=== PATIENT | female | born 1955 | race Caucasian/White ===

== ENCOUNTER 2025-05-28 18:01 | Emergency (ER) | payer OTHER ==
[~2025-05-28] VITALS: Ht 162.6 cm; Wt 78.0 kg
[~2025-05-28 18:01] MED LIST: AMIO200T33 PO; BACL-63 PO; CLON-853 PO; DIGO0.2570 PO; DILT180C88 PO; FURO1TAB33 GT; METO25TA5 PO; NEBI5TAB10 PO; RIVA20TA PO; TRAZ-228 PO
--- NOTE | 2025-05-28 18:16 | ECG ---
[facility] Test Date: 2025-05-28 Test Time: 18:15:38 Pat Name: ANTONINA REARDON Department: [facility] ED Patient ID: [id number] Room: Gender: F Magazine Supervisor: DOMINGA : 1955 Requested By: DAVON ABDULLAHI Order Number: [id number] Reading MD: Yao Estrella Measurements Intervals [place] Rate: 130 P: 86 PA: 116 QRS: 76 QRSD: 81 T: 219 QT: 285 QTc: 419 Interpretive Statements Sinus tachycardia Multiform ventricular premature complexes Low voltage, precordial leads Repol abnrm suggests ischemia, diffuse leads Electronically Signed On 06-04-2025 13:44:03 PDT by Yao Estrella Please click the below link to view image of tracing.
--- NOTE | 2025-05-28 19:30 | DVH ---
CHEST RADIOGRAPH Indication: chest pain Technique: Single frontal view of the chest was obtained Comparison: None FINDINGS: Lines and Tubes: Sternal wire sutures in place Dual-chamber pacemaker in place with pulse generator o jens the left chest. Lungs: Prominent bronchovascular markings both lung bueno. No prior studies for comparison Pleura: No effusion. No pneumothorax. Cardiomediastinal contours: Cardiac size upper limits of normal Bones: No acute osseous abnormality. IMPRESSION: 1. Findings may represent congestive failure. No prior studies for comparison. 2. Correlate with the clinical setting.
[2025-05-28 19:34] LABS: Hematocrit 37.0 % (36.0-46.0); Hemoglobin 12.4 g/dL (12.2-16.2); Mean Corpuscular Hemoglobin 28.3 pg (28.0-32.0); Mean Corpuscular Volume 84.2 fL (80.0-100.0); Nucleated Red Blood Cells % 0.1 %
[2025-05-28 19:39] LABS: Anion Gap 14 (5-15); Calcium 9.7 mg/dL (8.7-10.4); Carbon Dioxide 26 mmol/L (20-31)
[2025-05-28 19:40] LABS: Chloride 95 mmol/L (98-107); INR 1.19 (0.9-1.15); Potassium 3.5 mmol/L (3.5-5.1); Prothrombin Time 12.4 sec (9.3-11.8); Sodium 135 mmol/L (136-145)
[2025-05-28 19:44] LABS: BUN/Creatinine Ratio 11.3 (10.0-20.0)
[2025-05-28 19:51] LABS: Blood Urea Nitrogen 6 mg/dL (9-23); Glucose 111 mg/dL (74-106)
[2025-05-28] MEDS ORDERED: MORPHINE SULFATE 10 MG/5 ML ORAL SOLN PO ONE (20:30)
[2025-05-28] MEDS: SODIUM CHLORIDE 0.9% 1,000 ML IV ONE (20:54)
[2025-05-28] MEDS: HYDROmorphone HCL 2 MG/ML VL/or syr IV ONE (20:55)
--- NOTE | 2025-05-28 22:21 | ED.PDOC ---
History of Present Illness HPI Comments 70-year-old female who is on home hospice, palliative care for metastatic pancreatic cancer, some sort of arrhythmia for which she is on digoxin, diltiazem and metoprolol presenting for evaluation of intermittent palpitations, chest pain over the past 2-3 weeks. Patient states that about 3 weeks ago her pacemaker delivered a shock, did not seek any medical attention at that time. Since then reports that her heart rate shoots up suddenly and she develops chest discomfort. However, has not had any shocks delivered since 3 weeks ago. Patient has home hospice team checked on her today and given these symptoms they recommended that she come into the ER for further evaluation. However, ultimately the patient states that she does not want any invasive testing done to check out her heart. She just wanted to make sure that she was okay for the time being. She is requesting some IV fluids and a dose of IV narcotics as she is due for her usual morphine sulfate. Chief Complaint: Palpitations Time Seen by MD: 18:53 Allergies: Coded Allergies: NO KNOWN ALLERGIES (Unverified , 05/25/15) Home Meds Reported Medications Digoxin (Digoxin) 0.25 Mg Tab, 1 TAB PO DAILY, #30 TAB 5 Refills 05/25/15 Diltiazem Hcl (Diltiazem Cd) 180 Mg Cap, 1 CAP PO DAILY, #30 CAP 5 Refills 05/25/15 Baclofen (ED BACLOFEN) 10 Mg Tab, 1 TAB PO TID, #90 TAB 05/25/15 Baclofen (ED BACLOFEN) 10 Mg Tab, 1 TAB PO TID, #90 TAB 2 Refills 05/25/15 Furosemide (Lasix) 20 Mg Tb, 40 MG GT BID 05/25/15 Nebivolol Hcl (Bystolic) 5 Mg Tab, 1 TAB PO DAILY, #90 TAB 1 Refill 05/25/15 Amiodarone Hcl (Amiodarone Hcl) 200 Mg Tab, 1 TAB PO DAILY, #90 TAB 1 Refill 05/25/15 Trazodone Hcl (Trazodone Hcl) 100 Mg Tab, 1 TAB PO QPM, #30 TAB 1 Refill 05/25/15 Metoprolol Tartrate (Metoprolol Tartrate) 25 Mg Tab, 1 TAB PO BID, #180 TAB 3 Refills 05/25/15 Rivaroxaban (XARELTO) 20 Mg Tab, 1 TAB PO DAILY, #30 TAB 11 Refills 05/25/15 Clonazepam (Clonazepam) 1 Mg Tab, 1 TAB PO BID, #60 TAB 1 Refill 05/25/15 Mode of Arrival: Ambulatory Past Medical History PAST MEDICAL HISTORY: CHF, DM Past Medical History (Other): Metastatic pancreatic cancer Surgical History: Pacemaker SOLDERING TECHNICIAN History: No Pertinent SOLDERING TECHNICIAN History Family History Family History: Unobtainable Social History Lives In: Home Constitutional: denies: chills, diaphoresis, fatigue, fever, malaise, sweats, weakness, others EENTM: denies: blurred vision, double vision, ear bleeding, ear discharge, ear drainage, ear pain, ear ringing, eye pain, eye redness, hearing loss, mouth pain, mouth swelling, nasal discharge, nose bleeding, nose congestion, nose pain, photophobia, tearing, throat pain, throat swelling, voice changes, others Respiratory: denies: cough, hemoptysis, orthopnea, SOB at rest, shortness of breath, SOB with excertion, stridor, wheezing, others Cardiovascular: reports: chest pain, irregular heart beat, palpitations Gastrointestinal: denies: abdomen distended, abdominal pain, blood streaked bowels, constipated, diarrhea, dysphagia, difficulty swallowing, hematemesis, melena, nausea, poor appetite, poor fluid intake, rectal bleeding, rectal pain, vomiting, others Genitourinary: denies: abnormal vagina bleeding, burning, dyspareunia, dysuria, flank pain, frequency, hematuria, incontinence, pain, , vagina discharge, urgency, others Neurological: denies: dizziness, fainting, headache, left sided numbness, left sided weakness, numbness, paresthesia, pre-existing deficit, right sided numbness, right sided weakness, seizure, speech problems, tingling, tremors, weakness, others Musculoskeletal: denies: back pain, gout, joint pain, joint swelling, muscle pain, muscle stiffness, neck pain, others Integumetry: denies: bruises, change in color, change in hair/nails, dryness, laceration, lesions, lumps, rash, wounds, others Allergic/Immunocompromised: denies: Difficulty Healing, Frequent Infections, Hives, Itching, others Hematologic/Lymphatic: denies: anemia, blood clots, easy bleeding, easy bruising, swollen glands, others Endocrine: denies: excessive hunger, excessive sweating, excessive thirst, excessive urination, flushing, intolerance to cold, intolerance to heat, unexplained weight gain, unexplained weight loss, others Psychiatric: denies: anxiety, bipolar disorder, depression, hopeless, panic disorder, schizophrenia, sleepless, suicidal, others All Other Systems: Reviewed and Negative Physical Exam General Appearance: Cachectic HEENT: Normal ENT Inspection Neck: Normal Respiratory: No Accessory Muscle Use, No Respiratory Distress, Normal Breath Sounds Cardiovascular: No JVD, No Murmur, Normal Peripheral Pulses, Regular Rate/Rhythm Breast Exam: Deferred Gastrointestinal: Non Tender Genitalia: Deferred Pelvic: Deferred Rectal: Deferred Extremities: Non-tender Neurologic: Alert, spring bender II-XII nml as Tested, No Motor Deficits, Normal Mood, No Sensory Deficits Cerebellar Function: Normal Reflexes: NOT DONE Skin: Normal Color Lymphatic: No Adenopathy Was a procedure done? Was a procedure done?: No EKG EKG : Pulse Rate (adult): 130 [place]: Normal Cardiac Rhythm: ST Hypertrophy: None ST: Normal Differential Dx Considerations may include: Tachyarrhythmia versus ACS versus congestive heart failure versus pneumonia versus pulmonary embolism X-Ray, Labs, Meds, VS Vital Signs Date Time Temp Pulse Resp B/P (MAP) Pulse Ox O2 Delivery O2 Flow Rate FiO2 05/28/25 23:19 97.8 82 16 93/69 (77) 93 97.8 05/28/25 22:21 130 05/28/25 21:05 Room Air* 0 21 05/28/25 20:59 97.4 103 18 136/59 (84) 95 97.4 05/28/25 20:55 103 18 136/59 05/28/25 19:31 96 05/28/25 18:15 130 05/28/25 18:02 97.7 85 15 155/85 96 97.7 Lab Test 05/28/25 19:12 05/28/25 18:24 Range/Units Prothrombin Time 12.4 H 9.3-11.8 sec Prothrombin Time INR 1.19 H 0.9-1.15 Sodium Level 135 L 136-145 mmol/L Potassium Level 3.5 3.5-5.1 mmol/L Chloride Level 95 L 98-107 mmol/L Carbon Dioxide Level 26 20-31 mmol/L Anion Gap 14 5-15 Blood Urea Nitrogen 6 L 9-23 mg/dL Creatinine 0.53 L 0.550-1.02 mg/dL Glomerular Filtration Rate Calc 101 >90 mL/min BUN/Creatinine Ratio 11.3 10.0-20.0 Serum Glucose 111 H 74-106 mg/dL Calcium Level 9.7 8.7-10.4 mg/dL Troponin I High Sensitivity 5 5 </=34 ng/L White Blood Count 5.7 4.4-10.8 10^3/uL Red Blood Count 4.39 4.0-5.20 10^6/uL Hemoglobin 12.4 12.2-16.2 g/dL Hematocrit 37.0 36.0-46.0 % Mean Corpuscular Volume 84.2 80.0-100.0 fL Mean Corpuscular Hemoglobin 28.3 28.0-32.0 pg Mean Corpuscular Hemoglobin Concent 33.6 32.0-36.0 g/dL Red Cell Distribution Width 17.1 H 11.8-14.3 % Platelet Count 207 140-450 10^3/uL Mean Platelet Volume 9.0 6.9-10.8 fL Neutrophils (%) (Auto) 78.7 37.0-80.0 % Lymphocytes (%) (Auto) 11.3 10.0-50.0 % Monocytes (%) (Auto) 8.7 0.0-12.0 % Eosinophils (%) (Auto) 0.8 0.0-7.0 % Basophils (%) (Auto) 0.5 0.0-2.0 % Neutrophils # (Auto) 4.5 1.6-8.6 10 ^3/uL Lymphocytes # (Auto) 0.6 0.4-5.4 10 ^3/uL Monocytes # (Auto) 0.5 0-1.3 10 ^3/uL Eosinophils # (Auto) 0 0-0.8 10 ^3/uL Basophils # (Auto) 0 0-0.2 10 ^3/uL Nucleated Red Blood Cells 0.1 % B-Type Natriuretic Peptide 19.23 0-100 pg/mL Current Medications Medications (Trade) Dose Ordered Sig/Neel Route Start Time Stop Time Status Last Admin Sodium Chloride 1,000 ml @ 1,000 mls/hr Q1H ONCE IV 05/28/25 20:15 05/28/25 21:14 DC 10/20/25 20:54 Hydromorphone HCl (Dilaudid Injection) 1 mg ONCE ONCE IV 05/28/25 20:45 05/28/25 20:46 DC 05/28/25 20:55 Time of 1ST Reevaluation: 22:17 (Patient reporting improvement of discomfort after receiving IV fluid hydration and IV Dilaudid) Reevaluation 1ST: Improved Time of 2ND Reevaluation: 23:21 (Patient's heart rate has normalized. Feeling improved after interventions. Stable for discharge further outpatient managemen t.) Reevaluation 2ND: Improved Patient Education/Counseling: Diagnosis, Treatment, Prognosis, Need For Follow Up Family Education/Counseling: No Family Present SEPSIS Sepsis Screen Date sepsis recognized/suspect: May 28, 2025 Time Sepsis recognized/suspect: 1803 Recent Procedure: No On Antibiotic Therapy: No Respiratory Rate >20: No Heart Rate >90: No Temp<36 C (96.8 F) or >38.3 C: No SBP <90 or MAP <65 mmHG: No New Acute Mental Status Change: No Is the patient on CPAP, BIPAP,: No Physician Orders Electrocardigram (05/28/25 19:08) Electrocardigram (05/28/25 21:08) Chest Xray 1 View (05/28/25 19:07) Vital Signs Date Time Temp Pulse Resp B/P (MAP) Pulse Ox O2 Delivery O2 Flow Rate FiO2 05/28/25 23:19 97.8 82 16 93/69 (77) 93 97.8 05/28/25 22:21 130 05/28/25 21:05 Room Air* 0 21 05/28/25 20:59 97.4 103 18 136/59 (84) 95 97.4 05/28/25 20:55 103 18 136/59 05/28/25 19:31 96 05/28/25 18:15 130 05/28/25 18:02 97.7 85 15 155/85 96 97.7 Laboratory Tests Test 05/28/25 18:24 White Blood Count 5.7 10^3/uL (4.4-10.8) Medications Medications Dose Ordered Sig/Neel Route Start Time Stop Time Status Last Admin Dose Admin Hydromorphone HCl 1 mg ONCE ONCE IV 05/28/25 20:45 05/28/25 20:46 DC 05/28/25 20:55 Sodium Chloride 1,000 ml @ 1,000 mls/hr Q1H ONCE IV 05/28/25 20:15 05/28/25 21:14 DC 05/28/25 20:54 Departure 1 Departure Time of Disposition: 22:20 (70-year-old female who is on home hospice, palliative care for metastatic pancreatic cancer, some sort of arrhythmia for which she is on digoxin, diltiazem and metoprolol presenting for evaluation of intermittent palpitations, chest pain over the past 2-3 weeks. EKG performed upon arrival shows that the patient has sinus tachycardia, however, no evidence of any tachyarrhythmia that would require IV rate-controlling agent here. Upon my assessment and speaking with the patient she actually has a normal pulse palpated. Upon arrival also had a normal heart rate. Did have AICD/pacemaker fire 3 weeks ago, however, has not recurred since then. Given the reports of chest discomfort a consider possible ACS. Patient has a heart score of 3. Serial troponins were obtained which came back negative, does not seem consistent with ACS at this time. Patient denying any shortness of breath, has no pleuritic chest discomfort. Consider possible pulmonary embolism, discussed possibly obtaining a CT angiography of the chest further evaluate, however, patient declined. Patient denies any fevers, no recent cough. Chest x-ray was performed which upon my review shows no evidence of focal consolidation to suggest bacterial pneumonia. Patient with no known history of heart failure, chest x-ray is read as possible pulmonary vascular congestion, however, BNP is not critically elevated, no signs of fluid overload on extremities, does not seem consistent with new onset heart failure. CBC shows no evidence of any critical leukocytosis or significant anemia. Metabolic panel shows no evidence of any acute electrolyte abnormalities or acute kidney insufficiency. Patient is currently on home hospice and is not interested in any invasive testing for her heart or her lungs. Ultimately she stated that she just wanted some IV fluid and was requesting a dose of IV narcotics as she takes narcotics regula rly. Patient was given 1 L normal saline IV fluid bolus, was given IV Dilaudid. Here for a short while and feeling improved. Patient is stable for discharge further outpatient management by her home hospice team.) Impression: Primary Impression: Palpitations Additional Impressions: Sinus tachycardia Chest pain Disposition: HOME / SELF CARE / HOMELESS Condition: Stable Discharged With: Self Critical Care Note Critical Care Time?: No Stability Stability form required: No Heart Score Heart Score: Heart Score Response (Comments) Value History Slightly Suspicious 0 EKG Normal 0 Age >65 2 Risk Factors 1 or 2 risk factors 1 Troponin Normal limit 0 Total 3 JAI RUSH MD May 28, 2025 22:21
[2025-05-28 23:19] VITALS: BP 93/69; PULSE 82; RESP 16; TEMP 97.8; O2SAT 93
--- NOTE | 2025-05-29 00:27 | ECG ---
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
== END 2025-05-28 23:43 | disposition home or self-care (01) ==
LOC: ER 18:01
DX: R00.2 Palpitations (principal); R07.89 Other chest pain; R00.0 Tachycardia, unspecified; E11.9 Type 2 diabetes mellitus without complications; I50.9 Heart failure, unspecified; C25.9 Malignant neoplasm of pancreas, unspecified; Z79.899 Other long term (current) drug therapy; Z95.0 Presence of cardiac pacemaker
CPT/HCPCS: 36415; 71045; 80048; 83880; 84484; 85025; 85610; 93005; 96361; 96374; 99285; J1171; J7030